=== PATIENT | female | born 1955 | race Caucasian/White ===

== ENCOUNTER → 2020-06-15 11:29 | Outpatient (BNVA) | payer MEDICARE, MEDICAID, SELFPAY | PROVIDERS: Family Provider Nurse Practitioner Family; PCP Surgery; Referring Provider Family Medicine; Visit Provider Orthopaedic Surgery | DX: Z47.89 Encounter for other orthopedic aftercare (principal); Z01.810 Encounter for preprocedural cardiovascular examination | CPT/HCPCS: 73110; 87635 ==

== ENCOUNTER 2020-06-17 09:36 | Day surgery (SDC) | payer MEDICARE, MEDICAID, SELFPAY ==
[2020-06-16 14:36] VITALS: BMI 14.5
--- NOTE | 2020-06-17 | XR_ITS ---
WS: [id number] C-ARM RADIOGRAPHS LEFT WRIST; 4 IMAGES HISTORY: ORIF left wrist COMPARISON: 06/15/2020 Intraoperative imaging during screw and plate fixation distal radial fracture in good alignment. XR/XR wrist LT 2V 22701 IMPRESSION: ORIF distal radial fracture.
--- NOTE | 2020-06-17 | SCC_ITS ---
Procedure Done: Open reduction internal fixation left distal radius 40.1 seconds of fluoroscopic guidance, for a cumulative dose of 0.75 mGy, was provided to Dr. Fernández by the radiology department. C-arm images of the LEFT wrist were saved for the patient's permanent record. [facility]
[2020-06-17 10:01] VITALS: BP 147/76; PULSE 88; RESP 16; TEMP 36.6; O2SAT 100
--- NOTE | 2020-06-17 10:26 | ANES.PREANE2 ---
Pre-Anesthetic Assessment Pre-Anesthetic Assessment: Height/Weight: Height 1.5 m Weight 32.659 kg Temp Pulse Resp BP Pulse Ox 97.8 F 88 16 147/76 100 06/17/20 10:01 06/17/20 10:01 06/17/20 10:01 06/17/20 10:01 06/17/20 10:01 Preop Diagnosis: Fracture Left distal radius Proposed Procedure: Operation Date: 06/17/20 11:15 Proposed Procedures p ORIF Wrist distal radius fracture 00519 S52.502A(Left) - Chico Fernández MD Familial anesthetic complications: ponv Was Beta Home taken within 24 hours: N/A Was Clonidine taken within 24 hours: N/A Last intake: Intake Last Liquid Date 06/16/20 Last Liquid Time 18:00 Last Solid Date 06/16/20 Last Solid Time 18:00 Social: Social History: Tobacco and No alcohol Exam: Pre-Anes Outpt Exam: alert, oriented x 3, clear to auscultation bilaterally and regular rate & rhythm Airway: Cervical ROM: WNL MP: 2 Dentition: Other (no teeth) Pulmonary: Pulmonary: COPD (2 L NC at home) GI: GI: GERD Metabolic: Metabolic: Thyroid Anesthetic Plan: ASA status: 4 Anesthesia: General and Regional (specify below) (axillary) Risk of > 500 ml blood loss (7ml/kg in children): No PFSH Anesthesia PFSH: Family History (Updated 06/15/20 @ 11:11 by Sara Franz LPN) Mother CAD (coronary artery disease) Father CAD (coronary artery disease) Psychiatric illness Social History (Updated 06/15/20 @ 11:12 by Sara Franz LPN) Smoking and tobacco status: current every day smoker Alcohol intake: never Data Anesthesia Cardiac Studies: No Data to Display
[2020-06-17] MEDS: sodium chloride 0.9% 1,000 ML 30 ML IV (10:46)
--- NOTE | 2020-06-17 10:46 | W.PM.OPSUD ---
Surgery/Procedure H&P Update DATE OF PROCEDURE: June 17, 2020 DATE H&P PERFORMED: 06/15/20 PREOP DIAGNOSIS: Fracture Left distal radius PLANNED PROCEDURE: Operation Date: 06/17/20 11:15 Proposed Procedures p ORIF Wrist distal radius fracture 81439 S52.502A(Left) - Chico Fernández MD
--- NOTE | 2020-06-17 11:01 | ANES.PROC ---
Anesthesia Procedures Procedure/Date: 06/17/20 Nerve Block ^: Nerve Block 1: Main Anesthesia: general anesthesia Time Out Performed: No Consent: requested by attending/covering physician and from patient Nerve block location: axillary (L) Anesthesia monitors applied: pulse oximetry, EKG, BP cuff and oxygen Nerve block position: supine Anesthetic Used: ropivicaine 0.5% and with decadron (3 mg) Amount of anesthesia used (mL): 20 Ultrasound used to: visualize and ID brachial plexus Interscalene/Femoral BLK: 2 stimuplex 22 g needle used for position and inplane approach, visualize local anesthetic spread and no vascular puncture identified Injection: neg aspiration of heme Patient Tolerated Procedure: well Complications: none
--- NOTE | 2020-06-17 14:04 | PM.OP ---
Operative Report Date of procedure: June 17, 2020 Pre-op Diagnosis: Fracture Left distal radius Post-op Diagnosis: Extra-articular fracture left distal radius Post-op Findings: Same Procedure Done: Open reduction internal fixation left distal radius Implants: Rupert Variax short narrow right distal radius plate Pathology: none sent Surgeon: [place] Fernández Anesthesia: General Estimated blood loss (mL): 75 Tourniquet time (min): 20 Complications: None Findings: Patient had a extra-articular fracture of the left distal radius with significant dorsal angulation and dorsal comminution. She had skin tears on the dorsum of her wrist and distal forearm Condition: stable Disposition: PACU Brief History: The patient is a 64-year-old female who fell sustaining a fracture of her left distal radius. Attempted closed reduction was performed unsuccessfully in [place] complicating skin tears on the dorsum of her hand. She is referred to me. With the degree of displacemen, dorsal comminution and the dorsal skin compromise open reduction internal fixation was thought best for management of the fracture and management of her soft tissue envelope Procedure: Initial attempts were made at closed reduction however a satisfactory stable reduction could not be obtained. A decision was made to proceed with open reduction internal fixation.A 5 cm long incision was made along over the flexor carpi radialis tendon. Dissection was carried down through the tendon sheath. Dissection was carried down bluntly to the pronator quadratus. The pronator quadratus was elevated off of the distal radius leaving a cuff for later repair. Closed reduction was accomplished of the distal radius. A Rupert Variax short narrow plate was applied. It was fixed distally with three 2.4 mm locking screws and proximally with 1 2.7 mm nonlocking and 2 2.7 mm locking bicortical screws. Intraoperative imaging showed excellent position of the hardware. The wound was irrigated with saline. The pronator quadratus was reapproximated with 2-0 Vicryl. Subcutaneous tissues were closed with 2-0 Vicryl. The skin was closed with skin aroldo. Sterile dressings were applied. The patient was taken to outpatient surgery in stable condition.
[2020-06-17 14:07] VITALS: BP 123/91; PULSE 98; RESP 16; TEMP 36.4; O2SAT 100
[2020-06-17 14:10] VITALS: BP 130/84; PULSE 94; RESP 18; O2SAT 100
[2020-06-17 14:15] VITALS: BP 138/100; PULSE 93; RESP 20
[2020-06-17 14:20] VITALS: BP 117/101; RESP 18; TEMP 36.4; O2SAT 100
[2020-06-17] MEDS: HYDROcodone-acetaminophen 5-325 mg Tablet 1 TAB PO (14:34)
[2020-06-17 14:36] VITALS: BP 126/87; PULSE 92; RESP 18; O2SAT 99
== END 2020-06-17 14:59 | disposition home or self-care (01) ==
PROVIDERS: PCP Surgery; Visit Provider Orthopaedic Surgery
PROC: (CPT 25607; principal; 2020-06-17 11:15)
DX: S52.552A Other extraarticular fracture of lower end of left radius, initial encounter for closed fracture (principal); W19.XXXA Unspecified fall, initial encounter; J44.9 Chronic obstructive pulmonary disease, unspecified; Z99.81 Dependence on supplemental oxygen; K21.9 Gastro-esophageal reflux disease without esophagitis; Z82.49 Family history of ischemic heart disease and other diseases of the circulatory system; F17.210 Nicotine dependence, cigarettes, uncomplicated
CPT/HCPCS: 25607; 64417; 73100; 76000; 76942; C1713; J0690; J1100; J2704; J2795; J3010; J3490; J7030

== ENCOUNTER → 2020-07-21 10:37 | Outpatient (BNVA) | payer MEDICARE, MEDICAID, SELFPAY | PROVIDERS: PCP Surgery; Visit Provider Orthopaedic Surgery | DX: Z48.89 Encounter for other specified surgical aftercare (principal) | CPT/HCPCS: 73110 ==